=== PATIENT | female | born 1965 | race Caucasian/White ===

== ENCOUNTER 2016-09-21 21:08 | Emergency (ER) | payer OTHER ==
[2016-09-21 21:08] VITALS: BMI 22.4
[2016-09-21 21:32] VITALS: BP 117/66; PULSE 81; RESP 18; TEMP 98.5; O2SAT 99
--- NOTE | 2016-09-21 21:37 | C.PDOC ---
History Of Present Illness Patient complains of pain to tailbone region for 3 days. She denies any falls or injury. She states pain is worse with sitting. Pain is nonradiating and denies any numbness, weakness, urinary symptoms, abdominal pain, constipation, diarrhea, hematochezia or melena. Time Seen by Provider: 09/21/16 21:27 Chief Complaint (Nursing): Back Pain History Per: Patient History/Exam Limitations: no limitations Onset/Duration Of Symptoms: Days (3) Current Symptoms Are (Timing): Still Present Quality Of Discomfort: "Pain" Severity: Mild Past Medical History Reviewed: Historical Data, Nursing Documentation, Vital Signs Vital Signs: Last Vital Signs Temp 98.5 F 09/21/16 21:29 Pulse 81 09/21/16 21:29 Resp 18 09/21/16 21:29 BP 117/66 09/21/16 21:29 Pulse Ox 99 09/21/16 21:40 - Medical History PMH: No Chronic Diseases Family History: States: Unknown Family Hx - Social History Hx Alcohol Use: No Hx Substance Use: No - Immunization History Hx Tetanus Toxoid Vaccination: No Hx Influenza Vaccination: No Hx Pneumococcal Vaccination: No Review Of Systems Except As Marked, All Systems Reviewed And Found Negative. Constitutional: Negative for: Fever, Weakness, Malaise Cardiovascular: Negative for: Chest Pain, Palpitations Respiratory: Negative for: Cough, Shortness of Breath Gastrointestinal: Negative for: Vomiting, Abdominal Pain, Diarrhea, Constipation , Melena, Hematochezia, Rectal Pain Genitourinary: Negative for: Dysuria Skin: Negative for: Rash Neurological: Negative for: Headache, Dizziness Physical Exam - Physical Exam Appears: Non-toxic, No Acute Distress Skin: Normal Color, Warm, Dry Head: Atraumatic, Normacephalic Eye(s): bilateral: Normal Inspection, EOMI Neck: Normal ROM Chest: Symmetrical Cardiovascular: Rhythm Regular, No Murmur Respiratory: Normal Breath Sounds, No Wheezing Gastrointestinal/Abdominal: Normal Exam, Soft, No Tenderness, No Distention, No Guarding Back: Normal Inspection, No Vertebral Tenderness, No Paraspinal Tenderness, Other (tenderness to sacral and coccyx area, no swelling no erythema no ecchymosis, no pilonidal abscess, no mass) Extremity: Bilateral: Atraumatic, Normal Color And Temperature, Normal ROM Neurological/Psych: Oriented x3, Normal Speech Gait: Steady ED Course And Treatment O2 Sat by Pulse Oximetry: 99 Medical Decision Making Medical Decision Making: Patient with pain to coccyx region for 3 days and denies injury. Area is tender to palpation, no visible swelling or mass, low suspicion for pilonidal abscess. Xray ordered and reviewed showing fecal retention no abnormal bony tenderness Disposition Counseled Patient/Family Regarding: Need For Followup, Rx Given - Disposition Disposition: HOME/ ROUTINE Disposition Time: 22:03 Condition: STABLE Additional Instructions: Vaya a bryant mdico o la clnica en 2-5 fowler sin falta, para mas evaluacin. Silex los medicamentos sonu indicado. Volver a la omar de emergencia en cualquier momento si los sntomas persisten o empeoran. Prescriptions: Docusate [Colace] 100 mg PO TID #30 cap Ibuprofen [Motrin] 600 mg PO Q8 #30 tab Instructions: Acute Low Back Pain (ED) Print Language: ETHIOPIAN - POA Present On Arrival: None - Clinical Impression Clinical Impression: Low back pain, Constipation
--- NOTE | 2016-09-22 11:45 | RAD ---
PROCEDURE: Radiographs of the Lumbar Spine. HISTORY: pain for 3 days COMPARISON: No prior. FINDINGS: BONES: Vertebral bodies maintained in height. Normal alignment maintained. Minimal levo scoliotic curvature. DISC SPACES: Unremarkable. OTHER FINDINGS: None. IMPRESSION: Minimal levoscoliosis. Otherwise unremarkable.
== END 2016-09-21 22:09 | disposition home or self-care (01) ==
LOC: C.ER 21:08
DX: M54.5 Low back pain (principal); K59.00 Constipation, unspecified

== ENCOUNTER 2017-09-28 19:16 | Emergency (ER) | payer SELFPAY ==
[2017-09-28 19:17] VITALS: BMI 22.4
[2017-09-28 19:46] VITALS: TEMP 100.5
[2017-09-28] MEDS ORDERED: Albuterol 0.083% Inhal Sol (2.5 mg/3 mL) UD ONE (20:01)
[2017-09-28] MEDS: Albuterol 0.083% Inhal Sol (2.5 mg/3 mL) UD INH SCH ×2 (20:15→20:30)
--- NOTE | 2017-09-28 20:32 | C.PDOC ---
History Of Present Illness 52 y/o female presents to the ER complaining of intermittent cough and chest congestion which has been present for the past 2 days. Patient states that she also has body aches today. Patient reports persistent cough today which prompted this visit. Pt denies having fever, CP, and SOB. Has daughter with similar sx HPI: Influenza Time Seen by Provider: 09/28/17 19:36 Chief Complaint: Cough, Cold, Congestion History Per: Patient Onset/Duration Of Symptoms: Days Symptoms include: cough. denies: chest pain Risk factors for flu complications: No: adult > 65 years Past Medical History Reviewed: Historical Data, Nursing Documentation, Vital Signs Vital Signs: Last Vital Signs Temp 100.5 F H 09/28/17 19:39 Pulse 86 09/28/17 19:39 Resp 20 09/28/17 19:39 BP 101/70 09/28/17 19:39 Pulse Ox 99 09/28/17 19:39 - Medical History PMH: No Chronic Diseases Surgical History: No Surg Hx Family History: States: No Known Family Hx - Social History Hx Alcohol Use: No Hx Substance Use: No - Immunization History Hx Tetanus Toxoid Vaccination: No Hx Influenza Vaccination: No Hx Pneumococcal Vaccination: No Review Of Systems Except As Marked, All Systems Reviewed And Found Negative. Constitutional: Negative for: Fever, Chills Cardiovascular: Positive for: Other (chest congestion). Negative for: Chest Pain Respiratory: Positive for: Cough. Negative for: Shortness of Breath Physical Exam - Physical Exam Appears: Non-toxic, No Acute Distress Skin: Normal Color, Warm Head: Atraumatic, Normacephalic Eye(s): bilateral: Normal Inspection Ear(s): Bilateral: Normal Nose: Normal Oral Mucosa: Moist Throat: Normal, No Erythema, No Exudate Neck: Supple Chest: Symmetrical Cardiovascular: Rhythm Regular Respiratory: Decreased Breath Sounds, Rhonchi, Wheezing (expiratory wheezing), Other (no retractions) Neurological/Psych: Oriented x3, Normal Speech - ECG O2 Sat by Pulse Oximetry: 99 (RA) Pulse Ox Interpretation: Normal - Radiology X-Ray: Interpreted by Me, Viewed By Me X-Ray Interpretation: No Acute Disease - Progress ED Course And Treament: Patient has been given Nebulizer treatment and Prednisone. CXR shows no infiltrates. Patient appears in no acute distress. Patient has been discharged and told to follow up with PMD. Disposition Counseled Patient/Family Regarding: Diagnosis, Need For Followup, Rx Given - Disposition Disposition: HOME/ ROUTINE Disposition Time: 20:15 Condition: GOOD Additional Instructions: Increase PO fluids- Millicent liquido Millicent todos las medicinas Regresa si peor Prescriptions: Albuterol HFA [Ventolin HFA 90 mcg/actuation (8 g)] 2 puff IH [id number] #1 inhaler Benzonatate [Tessalon Perles] 100 mg PO TID #20 sgl Cetirizine HCl [Zyrtec] 10 mg PO DAILY #20 capsule Ibuprofen [Motrin] 600 mg PO Q6H #30 tab predniSONE [Prednisone] 40 mg PO DAILY #10 tab Instructions: Upper Respiratory Infection (ED) Forms: [employer] (Malay), Work Excuse Print Language: LITHUANIAN - Clinical Impression Clinical Impression: Upper respiratory infection - PA / FOUNDATION ASSISTANT / Resident Statement MD/DO has reviewed & agrees with the documentation as recorded. - Scribe Statement The provider has reviewed the documentation as recorded by the Nguyễn Torres Provider Attestation All medical record entries made by the Marcelaibmore were at my direction and personally dictated by me. I have reviewed the chart and agree that the record accurately reflects my personal performance of the history, physical exam, medical decision making, and the department course for this patient. I have also personally directed, reviewed, and agree with the discharge instructions and disposition.
[2017-09-28] MEDS ORDERED: Albuterol-Ipratrop 3 mg / 0.5 (3 ml) UD INH STA (20:45)
[2017-09-28] MEDS ORDERED: Promethazine/Cod 6.25mg-10mg/5ml Syr UD PO STA (20:56)
[2017-09-28] MEDS ORDERED: Promethazine/Cod 6.25mg-10mg/5ml Syr UD ONE (21:10)
[2017-09-28 21:19] VITALS: BP 98/62; PULSE 96
[2017-09-28 21:21] VITALS: O2SAT 99
[2017-09-28 21:43] VITALS: RESP 18
--- NOTE | 2017-09-29 08:50 | RAD ---
Chest x-ray two views History: Cough and congestion. Comparison: None available. Findings No focal infiltrate or effusion. Punctate nodular density at the right lung apex may represent small granuloma and or nodule. Bibasilar breast and shadows. Minimal right apical pleural thickening. Heart size within normal limits. Impression: No focal infiltrate or effusion.
== END 2017-09-28 21:28 | disposition home or self-care (01) ==
LOC: C.ER 19:16
DX: J06.9 Acute upper respiratory infection, unspecified (principal)

== ENCOUNTER 2017-10-04 12:46 | Emergency (ER) | payer SELFPAY ==
[2017-10-04 12:46] VITALS: BMI 22.4
[2017-10-04 13:06] VITALS: TEMP 99.9
[2017-10-04] MEDS ORDERED: guaiFENesin 100 mg/5 ml Syrup UD PO STA (15:24)
--- NOTE | 2017-10-04 15:26 | C.PDOC ---
History Of Present Illness 52 y/o female presents to the ER complaining of dry, non-productive cough which has been present for the past 9 days. Patient states that she was seen in [place] on 09/28/17 for similar symptoms. She had a CXR which was negative. and she was discharged with a prescription of Prednisone. She notes that she has been noncompliant with Prednisone and she still has 6 pills left.Of note, patient has been taking her infant's cough and cold medications instead of taking the medications for adults. Time Seen by Provider: 10/04/17 15:17 Chief Complaint (Nursing): Cough, Cold, Congestion History Per: Patient History/Exam Limitations: no limitations Onset/Duration Of Symptoms: Days Current Symptoms Are (Timing): Still Present Associated Symptoms: Cough Past Medical History Reviewed: Historical Data, Nursing Documentation, Vital Signs Vital Signs: Last Vital Signs Temp 99.9 F H 10/04/17 13:05 Pulse 87 10/04/17 15:36 Resp 24 10/04/17 15:36 BP 121/58 L 10/04/17 15:36 Pulse Ox 99 10/04/17 16:48 - Medical History PMH: No Chronic Diseases Surgical History: No Surg Hx Family History: States: No Known Family Hx - Social History Hx Alcohol Use: No Hx Substance Use: No - Immunization History Hx Tetanus Toxoid Vaccination: No Hx Influenza Vaccination: No Hx Pneumococcal Vaccination: No Review Of Systems Except As Marked, All Systems Reviewed And Found Negative. Constitutional: Negative for: Fever, Chills Cardiovascular: Negative for: Chest Pain Respiratory: Positive for: Cough. Negative for: Shortness of Breath Physical Exam - Physical Exam Appears: Non-toxic, No Acute Distress Skin: Normal Color, Warm, Dry Head: Atraumatic, Normacephalic Eye(s): bilateral: Normal Inspection Ear(s): Bilateral: Normal Nose: Normal Oral Mucosa: Moist Throat: Normal, No Erythema, No Exudate Neck: Supple Chest: Symmetrical Cardiovascular: Rhythm Regular Respiratory: Normal Breath Sounds, No Rales, No Rhonchi, No Wheezing, Other ( coughing occasionally) Neurological/Psych: Oriented x3, Normal Speech ED Course And Treatment O2 Sat by Pulse Oximetry: 99 (RA) Pulse Ox Interpretation: Normal Progress Note: Patient given Prednisone PO, Motrin PO, Robitussin PO, and nebulizer treatment. Medical Decision Making Medical Decision Making: viral syndrome, clear lungs, more likely viral bronchitis NO h/o asthma no wheezing POOR (0/10) MDI technique, abandoned. Dayquil and Nyquil educated. Disposition Doctor Will See Patient In The: Office Counseled Patient/Family Regarding: Studies Performed, Diagnosis - Disposition Referrals: [facility] [Outside] Disposition: HOME/ ROUTINE Disposition Time: 15:25 Condition: GOOD Additional Instructions: sigue Dayquil nehal el carine y Nyquil nehal la noche (o' el equivalente de [facility]) Usualmente tomado cada 4 horas EMRE de usar la bomba de Albuterol- es muy dependente en sonu esta usado Millicent much agua. Sigue en la [facility] sonu necessario Instructions: Acute Bronchitis, Adult (DC) Forms: [employer] (Japanese) Print Language: YI - Clinical Impression Clinical Impression: Viral bronchitis - Scribe Statement The provider has reviewed the documentation as recorded by the Scribe Jinny Torres Provider Attestation: All medical record entries made by the Scribe were at my direction and personally dictated by me. I have reviewed the chart and agree that the record accurately reflects my personal performance of the history, physical exam, medical decision making, and the department course for this patient. I have also personally directed, reviewed, and agree with the discharge instructions and disposition.
[2017-10-04] MEDS ORDERED: guaiFENesin 100 mg/5 ml Syrup UD ONE (15:36)
[2017-10-04 15:37] VITALS: BP 121/58; PULSE 87; RESP 24
[2017-10-04 16:48] VITALS: O2SAT 99
--- NOTE | 2017-10-06 12:33 | CARD ---
APPROVED REPORT EKG Measurement Heart [id number] NM [id number] <Conclusion> Normal sinus rhythm Cannot rule out Anterior infarct, age undetermined Abnormal ECG
== END 2017-10-04 15:36 | disposition home or self-care (01) ==
LOC: C.ER 12:46
DX: J20.8 Acute bronchitis due to other specified organisms (principal)